=== PATIENT | male | born 1955 | race Caucasian/White ===

== ENCOUNTER → 2018-08-03 10:39 | Outpatient (CLI) | payer OTHER, SELFPAY ==
[2018-08-03 11:59] LABS: HEMOLYSIS < 15 (0-50)
== END ==
PROVIDERS: PCP Family Medicine; Visit Provider Family Medicine
DX: E87.5 Hyperkalemia (principal)
CPT/HCPCS: 36415; 84132

== ENCOUNTER 2018-10-29 06:23 | Day surgery (SDC) | payer OTHER, SELFPAY ==
[2018-10-17 12:29] VITALS: BMI 27.1
[2018-10-29] VITALS (8 sets, daily range): BP systolic 82–172; BP diastolic 57–98; PULSE 59–66; RESP 8–17; TEMP 36–36.8; O2SAT 93–97; BMI 27.6
[2018-10-29] MEDS: LACTATED RINGERS 1,000 ML 100 ML IV (07:47)
--- NOTE | 2018-10-29 07:47 | PM.HP.1 ---
History of Present Illness History of Present Illness Date Patient Seen: 10/29/18 Time Patient Seen: 07:48 Chief complaint: [id number] LEFT INGUINAL HERNIA REPAIR Narrative: Patient is a gentleman for repair of a left inguinal hernia. He is still able to reduce it. Is become more symptomatic. Patient History Medical History Foot drop (Chronic) Hernia (Acute) HLD (hyperlipidemia) (Acute) HTN (hypertension) (Chronic) Irregular heartbeat (Acute) Surgical History History of back surgery (Resolved ~1997) History of colonoscopy (Acute 04/03/17) History of hernia surgery (Resolved) Hx of oral surgery (Resolved) Family History Brother Hypertension Father Lipoma Social History marital status: household members: spouse Smoking Status: Former smoker alcohol intake: current substance use type: does not use Family & Social History Family History Brother Hypertension Father Lipoma Social History: household members spouse Tobacco & Substance use: Smoking Status Former smoker alcohol intake current Meds Home Medications and Allergies Home Medications Medication Instructions Recorded Confirmed Type atorvastatin 20 mg PO DAILY 10/23/18 10/29/18 History lisinopril 10 mg PO DAILY 10/23/18 10/29/18 History verapamil 80 mg PO BID 10/23/18 10/29/18 History Allergies Allergy/AdvReac Type Severity Reaction Status Date / Time No Known Drug Allergies Allergy Verified 10/29/18 07:21 Review of Systems Review of Systems ROS Unobtainable: All systems reviewed & are unremarkable except as noted in HPI and below Exam Vital Signs (past 8 hours): - 10/29/18 07:26 Temperature 97.4 F L Pulse Rate 62 Respiratory Rate 16 Blood Pressure 172/98 H Pulse Oximetry 97 Oxygen Delivery Method Room Air Narrative Exam Narrative: Operative no apparent distress. No known and the neck or supraclavicular area. Lungs are clear to auscultation no rales or rhonchi. Heart regular rate and rhythm without murmur gallop. Abdomen is scaphoid and soft he has an umbilical hernia that he does not want repaired. There was reducible left inguinal hernia. No hernia on the right. Assessment & Plan Assessment & Plan narrative: Patient with a left inguinal hernia. I have discussed the operation with him. Risks of bleeding, infection, nerve injury which could result in chronic pain or chronic numbness, vas deferens injury, testicular injury or recurrence all discussed with him. He appears to understand wishes to proceed
--- NOTE | 2018-10-29 07:53 | PM.PREOP ---
Pre-operative Note Interval Note History & Physical reviewed/Exam performed by Physician: Yes Changes to H&P: No
[2018-10-29] MEDS: CEFAZOLIN 2 GM/100 ML FROZ.PIGGY IV (08:04)
--- NOTE | 2018-10-29 08:24 | SUR.OPER ---
Supine on padded OR bed, head on pillow, arms secured on padded arm boards at <90 degrees abduction, legs uncrossed, safety belt at thigh, tape over blanket over lower legs.
[2018-10-29] MEDS: BUPIVACAINE 0.5% (PF) VIAL 30 ML INJ (08:30)
--- NOTE | 2018-10-29 09:49 | PM.OP.1 ---
Operative Date/Time/Diagnoses Date of procedure: 10/29/18 Time of procedure: 09:30 Pre-op diagnosis: Left inguinal hernia reducible Post-op diagnosis: same (With a direct and an indirect component. Lipoma of the cord.) Procedure & Clinicians Procedure: Repair with plug and patch technique of left inguinal hernia Same procedure as scheduled: Yes Indications: Symptomatic hernia Surgeon: Raudel Colón Click Yes if Unassisted: Yes Anesthesia Type: General Operative Notes Findings: See postop diagnosis Closure Type: primary Specimen(s): none sent Prosthetic devices, grafts, tissues, transplants, or devices: Mesh Estimated Blood Loss (mL): 10 Blood products transfused: none Procedure in detail: The patient was placed supine on the operating room table and underwent general LMA anesthesia. He was prepped and draped in the usual fashion. A transverse incision was made overlying the internal ring and carried down to the level of the external oblique. The external oblique was opened parallel with its fibers through the external ring. The cord structures were elevated. The cremaster was opened proximally and search made for an indirect sac. In lipoma of the cord was identified and from surrounding structures. It was ligated at its base with a 3 0 Vicryl suture. Distal portion was removed. A sac was identified and from surrounding structures. It was opened and found to have no contents. It was dissected to the level the deep epigastric vessels or suture ligated with a 2 0 silk suture. Stump was allowed to retract. A medium plug was placed in the defect created by the lipoma and the sac. It was tacked into place with interrupted 0 Ethibond suture. The cremaster was closed over it with an interrupted 3 0 Vicryl suture.. The floor was examined and was found to be weakened.. A patch was placed across the floor and tacked at the pubic tubercle, the posterior lamella of the anterior rectus sheath, the ilioinguinal ligament, and superior lateral to the cord. The opening was modified as necessary to prevent tight constriction of the cord. Sutures of 0 Ethibond were used to secure the mesh. The external oblique was closed with a running 3 0 Vicryl. The subcu was closed with interrupted 3 0 Vicryl. The skin was closed with a running 4 0 Vicryl subcuticular stitch and Steri-Strips. Dressing was applied, the patient was awakened, and the patient was taken to the recovery area in good condition. Complications: none Post-operative Condition: stable Disposition: PACU
[2018-10-29] MEDS: OXYCODONE IR 5 MG TABLET PO (09:51)
== END 2018-10-29 10:30 | disposition home or self-care (01) ==
PROVIDERS: PCP Family Medicine; Visit Provider Specialist
PROC: (CPT 49505; principal; 2018-10-29 07:45)
DX: K40.90 Unilateral inguinal hernia, without obstruction or gangrene, not specified as recurrent (principal); D17.6 Benign lipomatous neoplasm of spermatic cord; I10 Essential (primary) hypertension; E78.5 Hyperlipidemia, unspecified; I49.9 Cardiac arrhythmia, unspecified
CPT/HCPCS: 49505; C1781; J0690; J1100; J1885; J2405; J2704; J3010

== ENCOUNTER 2023-05-03 08:27 | Day surgery (SDC) | payer MEDICARE, OTHER, SELFPAY ==
[2023-05-01 12:05] VITALS: BMI 27.2
[2023-05-03 08:54] VITALS: BMI 26.1
[2023-05-03 09:03] VITALS: BP 146/86; PULSE 65; RESP 18; TEMP 36.2; O2SAT 96
[2023-05-03] MEDS: LACTATED RINGERS 1,000 ML 42 ML IV ×2 (09:06→10:45)
--- NOTE | 2023-05-03 09:26 | PM.HP.1 ---
History of Present Illness History of Present Illness Date Patient Seen: 05/03/23 Time Patient Seen: 09:26 Chief complaint: Open Umbilical Hernia Repair Narrative: 68M with a symptomatic umbilical hernia here for elective open repair. No interval change in health. FOR[facility]LY [facility] Medical History Irregular heartbeat HLD (hyperlipidemia) Foot drop Hernia HTN (hypertension) Surgical History History of colonoscopy (04/03/17) Hx of oral surgery History of hernia surgery History of back surgery (~1997) Family History Brother Hypertension Father Lipoma Social History marital status: details: also lives with stepdaughter household members: spouse and children lives independently: Yes occupational status: previously employed Smoking Status: Former smoker alcohol intake: never substance use type: marijuana Meds Home Medications and Allergies Home Medications Medication Instructions Recorded Confirmed Type atorvastatin 20 mg tablet 20 mg PO DAILY 10/23/18 05/03/23 History verapamil 80 mg tablet 80 mg PO BID 10/23/18 05/03/23 History lisinopril 20 mg tablet 20 mg PO DAILY 03/23/23 05/03/23 History Allergies Allergy/AdvReac Type Severity Reaction Status Date / Time No Known Drug Allergies Allergy Verified 03/23/23 11:10 Exam Vital Signs (past 8 hours): - 05/03/23 09:03 Temperature 97.2 F L Pulse Rate 65 Respiratory Rate 18 Blood Pressure 146/86 H Pulse Oximetry 96 Oxygen Delivery Method Room Air Oxygen Delivery Method Room Air Narrative Exam Narrative: Gen-Adult man alert and oriented Abdomen Soft non tender, reducible umbilical hernia. Assessment & Plan Assessment and plan (1) Umbilical hernia: Qualifiers: Obstruction and gangrene presence: without obstruction or gangrene Qualified Code(s): K42.9 - Umbilical hernia without obstruction or gangrene Status: Acute Assessment & Plan narrative: 68M with a reducible umbilical hernia here for elective repair. overview of operation reviewed including risks benefits and alternatives. following discussion he provides his written and verbal consent to proceed.
--- NOTE | 2023-05-03 09:34 | PM.OP.1 ---
Operative Date/Time/Diagnoses Date of procedure: 05/03/23 Time of procedure: 10:47 Pre-op diagnosis: Umbilical hernia Post-op diagnosis: same Procedure & Clinicians Procedure: Open umbilical repair with mesh Same procedure as scheduled: Yes Indications: Symptomatic reducible umbilical hernia Surgeon: Monte[facility] [employer] Consultant: Mauri Carrion Anesthesia Type: General Operative Notes Findings: 3 cm fascial defect Specimen(s): none sent Estimated Blood Loss (mL): 20 Procedure in detail: Patient was brought to the operating room placed supine on the table. Bilateral lower extremity compression devices were applied. General anesthesia was induced and they were intubated with an endotracheal tube. They received 2 g of Ancef prior to skin incision. They were prepped and draped in sterile fashion. A time-out was performed. A curvilinear incision was made inferior to the umbilicus. The subcutaneous tissues were divided. The umbilical hernia was identified and the hernia sac was dissected off the umbilical skin and circumferentially off of the fascia defect. The hernia sac was sharply opened and contained viable omentum. The omentum was reduced back into the abdomen. Using blunt dissection I carefully carefully freed the hernia sac from beneath the fascia defect in order to accomodate the mesh. The fascia defect was 3 cm in maximal diameter. A Bard Ventralex ST hernia patch 8 cm was inserted beneath the fascia defect and above the peritoneum in a sublay position. The mesh was anchored in multiple locations using Ethibond suture to the fascia and the fascial defect was closed over the mesh. The umbilical skin was tacked to the subcutaneous tissues and then the remainder of the subcutaneous tissues were reapproximated using 3 0 Vicry,l skin closed with 4 0 Monocryl followed by the application of Dermabond and Steri-Strips. Sponge instrument count at the end of the operation was correct. Patient tolerated procedure well was extubated and transferred to postoperative care unit in stable condition. Complications: none Post-operative Condition: stable Disposition: same day surgery
[2023-05-03] MEDS: CEFAZOLIN 2 GM/100 ML PREMIX 100 ML IV (10:03)
--- NOTE | 2023-05-03 10:06 | SUR.OPER ---
Supine on padded OR bed, head on pillow, arms secured on padded arm boards at <90 degrees abduction, legs uncrossed, safety belt at thigh, tape over blanket over lower legs.
[2023-05-03] MEDS: BUPIVACAINE 0.25% (PF) VIAL 30 ML INJ (10:16)
[2023-05-03 10:55] VITALS: BP 139/79; PULSE 73; RESP 12; TEMP 36.4; O2SAT 96
[2023-05-03 11:00] VITALS: BP 136/77; PULSE 71; RESP 12; O2SAT 97
[2023-05-03 11:04] VITALS: BP 127/68; PULSE 68; RESP 14; O2SAT 96
[2023-05-03 11:09] VITALS: PULSE 67; RESP 16; O2SAT 96
== END 2023-05-03 11:24 | disposition home or self-care (01) ==
PROVIDERS: PCP Family Medicine; Referring Provider Surgery; Visit Provider Surgery
PROC: (CPT 49593; principal; 2023-05-03 10:00)
DX: K42.9 Umbilical hernia without obstruction or gangrene (principal)
CPT/HCPCS: 49593; J0330; J0690; J1885; J2250; J2405; J2704; J3010

== ENCOUNTER 2024-05-08 09:01 | Day surgery (SDC) | payer MEDICARE, OTHER, SELFPAY ==
[2024-05-08 09:29] VITALS: BP 158/81; PULSE 62; RESP 16; TEMP 36.1; O2SAT 98
[2024-05-08] MEDS: LACTATED RINGERS 1,000 ML 42 ML IV (09:39)
--- NOTE | 2024-05-08 09:41 | P.HP_ITS ---
History of Present Illness History of Present Illness Date Patient Seen: 05/08/24 Chief complaint: Screening Colonoscopy Narrative: History of adenomatous colon polyps last colonoscopy 6-7 years ago FOR[facility], [facility] Medical History Irregular heartbeat HLD (hyperlipidemia) Foot drop Hernia HTN (hypertension) Surgical History History of colonoscopy (04/03/17) Hx of oral surgery History of hernia surgery History of back surgery (~1997) Family History Brother Hypertension Father Lipoma Social History marital status: details: also lives with stepdaughter household members: spouse and children lives independently: Yes occupational status: previously employed Smoking Status: Former smoker alcohol intake: never substance use type: marijuana Meds Home Medications and Allergies Home Medications Medication Instructions Recorded Confirmed Type atorvastatin 20 mg tablet 20 mg PO DAILY 10/23/18 05/08/24 History verapamil 80 mg tablet 80 mg PO BID 10/23/18 05/08/24 History lisinopril 20 mg tablet 20 mg PO DAILY 03/23/23 05/08/24 History acetaminophen 325 mg capsule 650 mg (2 x 325 mg) PO QID PRN 05/03/23 05/18/23 Rx (Tylenol) pain #60 caps docusate sodium 100 mg capsule 100 mg PO BID #30 caps 05/03/23 05/18/23 Rx (Colace) ibuprofen 200 mg tablet 400 mg (2 x 200 mg) PO Q6H #60 tabs 05/03/23 05/18/23 Rx sodium,potassium,mag sulfates 17.5 See Rx Instructions PO .COMPLEX 04/25/24 Rx gram-3.13 gram-1.6 gram oral soln #354 mL (Suprep Bowel Prep Kit) Cq 10 300 mg PO DAILY 05/08/24 05/08/24 History cholecalciferol (vitamin D3) 25 25 mcg PO DAILY 05/08/24 05/08/24 History mcg (1,000 unit) capsule (Vitamin D3) glucosamine sulfate 750 mg tablet 1,500 mg PO BID 05/08/24 05/08/24 History magnesium 200 mg tablet 400 mg PO DAILY 05/08/24 05/08/24 History Allergies Allergy/AdvReac Type Severity Reaction Status Date / Time No Known Drug Allergies Allergy Verified 05/08/24 09:15 Exam Vital Signs (past 8 hours): - 05/08/24 09:29 Temperature 97.0 F L Pulse Rate 62 Respiratory Rate 16 Blood Pressure 158/81 H Pulse Oximetry 98 Oxygen Delivery Method Room Air Oxygen Delivery Method Room Air Narrative Exam Narrative: Oropharynx free of lesions Chest clear to auscultation percussion Cardiac exam reveals no S3 or murmur Assessment & Plan Assessment & Plan narrative: Follow-up colonoscopy for history of adenomatous colon polyps. Risks, benefits, alternatives have been explained. Time-Based Coding :: [TOTAL MINUTES] spent with patient and on the chart (including review of chart, obtaining history, exam, reviewing outside data, placing orders, documenting exam and treatment plan, and counseling patient) on [DATE]. PROFEE Service Clerk Document charge(s): No
--- NOTE | 2024-05-08 09:42 | PM.OP.COLON ---
Operative Date/Time/Diagnoses Date of procedure: 05/08/24 Pre-op diagnosis: See indication and findings Procedure & Clinicians Study performed: Colonoscopy Same procedure as scheduled: Yes Indications: History of adenomatous colon polyps Surgeon: Alison Foster Procedure Notes Procedure in detail: After informed consent was obtained the patient was placed in left lateral decubitus position. The video colonoscope was introduced the rectum slowly advanced cecum. Preparation was good. On slow withdrawal mucosa was carefully examined. The scope was removed. The patient tolerated procedure well. Blood loss none Complications none Sedation mac Findings 1. Moderate sigmoid diverticulosis 2. Otherwise negative colonoscopy to cecum Patient should have follow-up colonoscopy in 10 years
[2024-05-08 10:35] VITALS: BP 137/75; PULSE 61; RESP 12; TEMP 36.1; O2SAT 97
[2024-05-08 10:40] VITALS: BP 113/79; PULSE 58; RESP 16; O2SAT 97
[2024-05-08 10:45] VITALS: BP 146/73; PULSE 54; RESP 19; TEMP 36.4; O2SAT 97
== END 2024-05-08 10:57 | disposition home or self-care (01) ==
PROVIDERS: Referring Provider Internal Medicine Gastroenterology; Visit Provider Internal Medicine Gastroenterology
PROC: 0DJD8ZZ Inspection of Lower Intestinal Tract, Via Natural or Artificial Opening Endoscopic (ICD-10-PCS; CPT 45378; principal; 2024-05-08 10:00)
DX: Z12.11 Encounter for screening for malignant neoplasm of colon (principal); Z86.0101 Personal history of adenomatous and serrated colon polyps; K57.30 Diverticulosis of large intestine without perforation or abscess without bleeding
CPT/HCPCS: G0105; J2704